=== PATIENT | male | born 1950 | race Caucasian/White ===

== ENCOUNTER 2017-10-12 07:30 | Inpatient (IN) | payer OTHER ==
[~2017-10-12] VITALS: Ht 165.1 cm; Wt 73.5 kg
[2017-10-12] MEDS ORDERED: GLIPIZIDE5 MG (11:06)
[2017-10-12] MEDS ORDERED: FORTAMET1000 MG (11:06)
[2017-12-21] MEDS ORDERED: SIMVASTATIN40 MG PO (12:45)
[2017-12-21] MEDS ORDERED: LOSARTAN POTAS100 MG PO (12:45)
[2017-12-21] MEDS ORDERED: PROTONIX40 MG PO (12:46)
[2017-12-29] MEDS ORDERED: GABAPENTIN800 MG PO (12:37)
[2017-12-29] MEDS ORDERED: DOCUSATE SODIU100 MG PO (12:37)
[2017-12-29] MEDS ORDERED: AMOX-CLAV 875-1 EACH PO (12:38)
[2017-12-29] MEDS ORDERED: PERCOCET 5-3251 EACH PO (12:39)
[2017-12-29] MEDS ORDERED: CLONAZEPAM1 MG PO (12:39)
== END 2017-12-29 18:03 | DRG 455 ==
LOC: O/R 10-19 04:31 → SURH 10-19 04:31 → O/R 12-28 04:39 → PED 12-28 04:39 → SURH 12-28 07:30 → PED 12-28 12:08
PROVIDERS: Orthopaedic Surgery Orthopaedic Surgery of the Spine
PROC: 0SG0071 Fusion of Lumbar Vertebral Joint with Autologous Tissue Substitute, Posterior Approach, Posterior Column, Open Approach (ICD-10-PCS; 2017-12-28)
PROC: 0ST20ZZ Resection of Lumbar Vertebral Disc, Open Approach (ICD-10-PCS; 2017-12-28)
PROC: 0SG00AJ Fusion of Lumbar Vertebral Joint with Interbody Fusion Device, Posterior Approach, Anterior Column, Open Approach (ICD-10-PCS; 2017-12-28)
PROC: 07DS3ZZ Extraction of Vertebral Bone Marrow, Percutaneous Approach (ICD-10-PCS; 2017-12-28)
PROC: 0SG00A0 Fusion of Lumbar Vertebral Joint with Interbody Fusion Device, Anterior Approach, Anterior Column, Open Approach (ICD-10-PCS; principal; 2017-12-28 09:30)
DX: M47.26 Other spondylosis with radiculopathy, lumbar region (principal); M48.061 Spinal stenosis, lumbar region without neurogenic claudication; M51.16 Intervertebral disc disorders with radiculopathy, lumbar region; I10 Essential (primary) hypertension; E11.9 Type 2 diabetes mellitus without complications

== ENCOUNTER 2018-01-12 06:40 | Emergency (ER) | payer OTHER ==
[~2018-01-12] VITALS: Ht 165.1 cm; Wt 76.2 kg
[~2018-01-12 06:40] MED LIST: AMOX-CLAV 875-1 EACH PO; CLONAZEPAM1 MG PO; DOCUSATE SODIU100 MG PO; FORTAMET1000 MG; GABAPENTIN800 MG PO; GLIPIZIDE5 MG; LOSARTAN POTAS100 MG PO; PERCOCET 5-3251 EACH PO; PROTONIX40 MG PO; SIMVASTATIN40 MG PO
[2018-01-12] MEDS ORDERED: NORFLEX100MG PO (11:50)
[2018-01-12] MEDS ORDERED: KETO10TA2 PO (11:50)
== END 2018-01-12 12:04 | disposition home or self-care (01) ==
LOC: ER 06:40
DX: M79.632 Pain in left forearm (principal); M79.631 Pain in right forearm; M79.662 Pain in left lower leg; M79.661 Pain in right lower leg; M54.89 Other dorsalgia